=== PATIENT | male | born 1985 | race African-American/Black ===

== ENCOUNTER 2022-12-08 11:53 | Emergency (ER) | payer OTHER ==
[2022-12-08 12:08] VITALS: BP 155/106; PULSE 94; RESP 18; TEMP 98.8; BMI 37.3
[2022-12-08] MEDS ORDERED: DIPHTH,PERTUSS(ACELL),TET 0.5 ML DISP.SYRIN IM ONE ×2 (12:10→12:37)
[2022-12-08] MEDS ORDERED: AMOX TR/POT CLAV 875MG/125MG TABLETS (FP) PO ONE (12:10)
[2022-12-08] MEDS ORDERED: AMOX TR/POT CLAV 875MG/125MG TABLETS (FP) ONE (12:36)
== END 2022-12-08 12:55 | disposition home or self-care (01) ==
LOC: FER 11:53
PROC: 3E0234Z Introduction of Serum, Toxoid and Vaccine into Muscle, Percutaneous Approach (ICD-10-PCS; principal; 2022-12-08)
DX: S41.151A Open bite of right upper arm, initial encounter (principal); Y04.1XXA Assault by human bite, initial encounter; Y92.119 Unspecified place in children's home and orphanage as the place of occurrence of the external cause; Y99.0 Civilian activity done for income or pay
CPT/HCPCS: 90715; 99283-25

== ENCOUNTER 2024-02-07 17:14 | Emergency (ER) | payer OTHER ==
[2024-02-07 17:19] VITALS: BP 158/106; PULSE 66; RESP 18; TEMP 99.1; BMI 38.0
[2024-02-07] MEDS: SODIUM CHLORIDE 1,000 ML IV STA (17:50)
[2024-02-07 17:56] LABS: HEMATOCRIT 42.5 % (35.4-49); HEMOGLOBIN 13.8 G/dL (11.7-16.9); MCH 30.1 pg (25.7-33.7); MCHC 32.4 g/dl (32.0-35.9); MEAN CELL VOLUME 93.1 fl (80-96); MEAN PLT VOLUME 10.1 fl (7.5-11.1); PLATELET COUNT 269.7 10^3/uL (134-434); RBC 4.57 10^6/uL (4.00-5.60); RDW 13.1 % (11.9-15.9); WHITE BLOOD COUNT 7.7 10^3/uL (4.0-10.8)
[2024-02-07 18:05] LABS: PLATELET ESTIMATE ADEQUATE
[2024-02-07 18:16] LABS: ALBUMIN 4.3 g/dl (3.4-5.0); BILIRUBIN,TOTAL 0.6 mg/dl (0.2-1); CALCIUM 9.7 mg/dl (8.5-10.1); CREATININE 1.8 mg/dl (0.6-1.3); POTASSIUM 4.3 mmol/L (3.5-5.1); TOT PROT 6.7 g/dl (6.4-8.2)
[2024-02-07 18:25] LABS: VENOUS BASE EXCESS 0.2 mmol/L (-2-2); VENOUS O2 SATURATION 48.1 % (70-80); VENOUS PCO2 48.4 mmHg (38-52); VENOUS PH 7.355 (7.310-7.410)
[2024-02-07 19:58] LABS: EPITHELIAL CELLS 0-5 /hpf
[2024-02-07] MEDS: SODIUM CHLORIDE 0.9% 500 ML INFUS.BAG IV ONE ×2 (20:10→21:12)
[2024-02-07 20:51] LABS: ANION GAP 8 mmol/L (4-13); CALCIUM 8.6 mg/dl (8.5-10.1); CHLORIDE 102 mmol/L (98-107); CO2 24 mmol/L (21-32); CREATININE 1.5 mg/dl (0.6-1.3); GLUCOSE,RANDOM 324 mg/dl (74-106); SODIUM 134 mmol/L (136-145)
[2024-02-07] MEDS ORDERED: INSULIN REGULAR HUMAN 100 UNITS/ML *VIAL ONE (21:08)
[2024-02-07] MEDS: INSULIN REGULAR HUMAN 100 UNITS/ML *VIAL IVPUSH ONE (21:12)
== END 2024-02-07 22:31 | disposition home or self-care (01) ==
LOC: FER 17:14
PROC: 3E033GC Introduction of Other Therapeutic Substance into Peripheral Vein, Percutaneous Approach (ICD-10-PCS; principal; 2024-02-07)
PROC: 3E0337Z Introduction of Electrolytic and Water Balance Substance into Peripheral Vein, Percutaneous Approach (ICD-10-PCS; 2024-02-07)
DX: E11.9 Type 2 diabetes mellitus without complications (principal); R35.89 Other polyuria; R63.1 Polydipsia
CPT/HCPCS: 36415; 80048; 80053; 81003; 81015; 82010; 82803; 82962; 85025; 87086; 99284-25